=== PATIENT | male | born 1990 | race Caucasian/White ===

== ENCOUNTER → 2016-10-05 | Outpatient (CLI) | payer OTHER ==
--- OUTSIDE RECORDS SUMMARY | 2016-10-05 15:02 | XMS REPORT ---
Author Author TRESSA HOLGUIN Organization [employer] Address Unknown Phone Unavailable Care Team Providers Care Coiler Name Role Phone TRESSA HOLGUIN CP Unavailable Allergies No Known Allergies Problems Problem Type Condition ICD-9 Code Onset Dates Condition Status Assessment Dental examination V72.2 Active Medications No Known Medications Procedures Procedure Coding System Code Date INTRAORL-PERIAPICAL 1 FILM 10406 CPT-4 D0220 March 25, 2015 BITEWING - SINGLE FILM CPT-4 D0270 March 25, 2015 LTD ORAL EVALUATION - PROBLEM FOCUS CPT-4 D0140 March 25, 2015 Results No Known Results Summary Purpose [employer] Submission
--- NOTE | 2016-10-05 16:41 | Diagnostic Imaging Report ---
PROCEDURE: MRI left upper extremity without contrast. TECHNIQUE: Multiplanar, multisequence non contrast-enhanced MRI of the left upper extremity was accomplished. INDICATION: Fall in 2015 while weightlifting. Grinding in shoulder. FINDINGS: Rotator cuff is intact. There is normal bulk of the rotator cuff muscles. The humeral head is in normal articulation with the glenoid fossa. Marrow signal is normal throughout. Articulating surfaces are smooth. There is no joint effusion. No evidence of labral tear or avulsion. Long head of the biceps is in the bicipital groove and attaches to the labrum in a normal fashion. No evidence of paralabral cyst. There is moderate hypertrophic change of the AC joint which shows osteophyte formation both on the undersurface and superiorly. There is moderate effusion in the AC joint. The deltoid muscle is intact showing normal bulk. IMPRESSION: 1. 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 In this age group with weightlifting, would consider possible AC joint separation, though alignment is good at this time. 2. No evidence of rotator cuff disease or labral tear. Dictated by: Dictated on workstation # [id number]
== END ==
LOC: RAD 15:00
PROVIDERS: ATTEND Nurse Practitioner Primary Care
DX: M25.512 Pain in left shoulder (principal); M19.012 Primary osteoarthritis, left shoulder
CPT/HCPCS: 73221